=== PATIENT | female | born 1990 | race Caucasian/White ===

== ENCOUNTER 2024-06-08 17:52 | Emergency (ER) | payer MEDICAID ==
[~2024-06-08] VITALS: Ht 172.7 cm; Wt 79.0 kg
[2024-06-08] MEDS: PREDNISONE 20MG TABLET PO ONE (21:25)
[2024-06-08] MEDS: ALBUTEROL (0.083%) 2.5MG/3ML NEB HHN ONE (21:43)
[2024-06-08] MEDS ORDERED: P50 MT (21:49)
[2024-06-08] MEDS ORDERED: ALBU18HF2 IH (21:49)
[2024-06-08 22:02] VITALS: PULSE 75; RESP 16; O2SAT 98
[2024-06-08 22:10] VITALS: BP 116/73; PULSE 89; RESP 18; TEMP 37.00296; O2SAT 98
== END 2024-06-08 22:55 | disposition home or self-care (01) ==
LOC: ER 17:52
DX: J20.9 Acute bronchitis, unspecified (principal)
CPT/HCPCS: 71045; 94640; 99283; J7512; Z7610 ×3